=== PATIENT | female | born 1975 | race African-American/Black ===

== ENCOUNTER 2017-04-03 14:39 | Emergency (ER) | payer MEDICAID, OTHER ==
[~2017-04-03] VITALS: Ht 154.9 cm; Wt 82.0 kg
[~2017-04-03 14:39] MED LIST: IBUP-2030 PO
[2017-04-03 15:11] VITALS: BP 133/89
== END 2017-04-03 20:00 | disposition left against medical advice (07) ==
LOC: ER 19:30
DX: Z53.21 Procedure and treatment not carried out due to patient leaving prior to being seen by health care provider (principal)

== ENCOUNTER 2017-08-30 22:01 | Emergency (ER) | payer MEDICAID ==
[~2017-08-30] VITALS: Ht 154.9 cm; Wt 84.0 kg
[2017-08-30] MEDS ORDERED: KETOROLAC 60MG/2ML VIAL IM ONE (23:45)
[2017-08-30 23:57] VITALS: BP 143/77
== END 2017-08-30 23:55 | disposition home or self-care (01) ==
LOC: ER 22:20
DX: K08.89 Other specified disorders of teeth and supporting structures (principal)
CPT/HCPCS: 96372; 99283; J1885

== ENCOUNTER 2021-06-23 01:46 | Emergency (ER) | payer MEDICAID ==
[~2021-06-23] VITALS: Ht 154.9 cm; Wt 97.0 kg
[2021-06-23 02:05] VITALS: BP 176/100
[2021-06-23] MEDS ORDERED: ONDANSETRON HCL 4MG/2ML INJ IV STA (02:17)
[2021-06-23] MEDS ORDERED: FAMOTIDINE 20MG/2ML VIAL IV STA (02:17)
[2021-06-23] MEDS ORDERED: MAGNESIUM/ALUMINUM HYDROXIDE/SIMETHICONE 30ML UDC PO STA (02:17)
[2021-06-23] MEDS ORDERED: SODIUM CHLORIDE 0.9% 1,000 ML IV ONE (02:30)
== END 2021-06-23 05:17 | disposition left against medical advice (07) ==
LOC: ER 01:46
DX: R11.2 Nausea with vomiting, unspecified (principal)
CPT/HCPCS: 93005; 99283; J7030